=== PATIENT | male | born 1980 | race Caucasian/White ===

== ENCOUNTER 2018-10-24 05:50 | Emergency (ER) | payer SELFPAY ==
[2018-10-24 06:44] LABS: ABSOLUTE LYMPHOCYTES (AUTO) 1.6 10^3/uL (0.5-4.7); ABSOLUTE MONOCYTES (AUTO) 0.6 10^3/uL (0.1-1.4); ABSOLUTE NEUT (AUTO) 8.4 10^3/uL (1.7-8.2); BASOPHILS % (AUTO) 0.1 % (0-2); EOSINOPHILS % (AUTO) 0.4 % (0-6); LYMPHOCYTES % (AUTO) 14.8 % (13-45); MEAN CORPUSCULAR HEMOGLOBIN 30.7 pg (27.0-33.4); MEAN CORPUSCULAR HGB CONC 34.9 g/dL (32.0-36.0); MEAN CORPUSCULAR VOLUME 88 fl (80-97); MONOCYTES % (AUTO) 5.8 % (3-13); PLATELET COUNT 159 10^3/uL (150-450); RED BLOOD COUNT 5.22 10^6/uL (4.35-5.55); RED CELL DISTRIBUTION WIDTH 13.1 % (11.5-14.0); SEGMENTED NEUTROPHILS % (AUTO) 78.9 % (42-78); TOTAL CELLS COUNTED % (AUTO) 100 %; WHITE BLOOD COUNT 10.6 10^3/uL (4.0-10.5)
--- NOTE | 2018-10-24 06:49 | ER Document Report ---
ED General - General Chief Complaint: Abdominal Pain Stated Complaint: STOMACH PAIN Time Seen by Provider: 10/24/18 06:37 TRAVEL OUTSIDE OF THE [place] IN LAST 30 DAYS: No - HPI Notes: Patient is a 38-year-old male that presents to the emergency department for chief complaint of epigastric pain and chest pain. Patient reports sudden onset of pain in his epigastric region that radiates up into his chest substernally that began suddenly at 2 AM. He states the pain woke him from sleep. He did try taking Tums with no relief. Patient states similar symptoms in the past with acid reflux but states that has previously been relieved with Tums which did not work this time. He denies any recent alcohol consumption. He denies any heavy meals last night. He denies any difficulty breathing or shortness of breath. Patient states he tried to vomit a few times without success. He denies associated fever diarrhea Past Medical History: GERD Past Surgical History: 2 back surgeries Social History: Denies drugs alcohol or tobacco Family History: Reviewed and noncontributory for presenting illness Allergies: Reviewed, see documented allergy list. REVIEW OF SYSTEMS: CONSTITUTIONAL : No fever No chills No diaphoresis No recent illness EENT: No vision changes No congestion No sore throat CARDIOVASCULAR: No chest pain No palpitations RESPIRATORY: No shortness of breath No cough No difficulty breathing GASTROINTESTINAL: abdominal pain nausea No vomiting No diarrhea GENITOURINARY: No dysuria No hematuria No difficulty urinating MUSCULOSKELETAL: No back pain No leg pain No arm pain SKIN: No rashes No lesions LYMPHATIC: No swollen, enlarged glands. NEUROLOGICAL: No lightheadedness No headache No weakness No paresthesias PSYCHIATRIC: No anxiety No depression PHYSICAL EXAMINATION: Vital signs reviewed, nursing noted reviewed. GENERAL: Well-appearing, well-nourished and in no acute distress. HEAD: Atraumatic, normocephalic. EYES: Eyes appear normal, extraocular movements intact, sclera anicteric, conjunctiva are normal. ENT: nares patent, oropharynx clear without exudates. Moist mucous membranes. NECK: Normal range of motion, supple without lymphadenopathy LUNGS: Breath sounds clear to auscultation bilaterally and equal. No wheezes rales or rhonchi. HEART: Regular rate and rhythm without murmurs ABDOMEN: Soft, epigastric and left upper quadrant tenderness, negative Juarez sign, normoactive bowel sounds. No rebound, guarding, or rigidity. No masses appreciated. EXTREMITIES: Nontender, good range of motion, no pitting or edema. NEUROLOGICAL: No focal neurological deficits. Moves all extremities spontaneously Motor and sensory grossly intact on exam. PSYCH: Normal mood, normal affect. SKIN: Warm, Dry, normal turgor, no rashes or lesions noted on exposed skin - Related Data Allergies/Adverse Reactions: No Known Drug Allergies Allergy (Verified 10/24/18 06:10) Past Medical History - Social History Smoking Status: Unknown if Ever Smoked Family History: Reviewed & Not Pertinent Patient has suicidal ideation: No Patient has homicidal ideation: No Renal/ Medical History: Denies: Hx Peritoneal Dialysis GI Medical History: Reports: Hx Gastroesophageal Reflux Disease Physical Exam - Vital signs Vitals: Temp Pulse Resp BP Pulse Ox 98 F 55 L 22 H 189/105 H 99 10/24/18 06:11 10/24/18 06:11 10/24/18 06:11 10/24/18 06:11 10/24/18 06:11 Course - Re-evaluation Re-evalutation: 10/24/18 06:49 10/24/18 06:46 Vitals reviewed. Nursing notes reviewed. Patient is well-appearing and in no acute distress. He does have some epigastric discomfort and mild left upper quadrant tenderness concerning for possible pancreatitis. Lab work will be ordered for further evaluation. Patient given GI cocktail, and Pepcid for symptomatic management. His EKG shows no acute ischemic changes, he has no known risk factors for CAD and I am not suspicious of ACS at this time. 10/24/18 07:19 Patient's lab work shows normal lipase. He has no electrolyte derangement or renal insufficiency.. His abdominal exam is tender in the epigastric region but he does not have any peritoneal signs to suggest ruptured ulcer or other acute intra-abdominal process requiring CT scan. Patient will be referred to GI for EGD. He was extensively counseled on dietary changes. He will be started on omeprazole. He is stable at discharge. Laboratory 10/24/18 10/24/18 10/24/18 06:20 06:20 06:40 WBC 10.6 H RBC 5.22 Hgb 16.0 Hct 46.0 MCV 88 MCH 30.7 MCHC 34.9 RDW 13.1 Plt Count 159 Seg Neutrophils % 78.9 H Lymphocytes % 14.8 Monocytes % 5.8 Eosinophils % 0.4 Basophils % 0.1 Absolute Neutrophils 8.4 H Absolute Lymphocytes 1.6 Absolute Monocytes 0.6 Absolute Eosinophils 0.0 Absolute Basophils 0.0 Sodium 143.0 Potassium 4.1 Chloride 105 Carbon Dioxide 24 Anion Gap 14 BUN 21 H Creatinine 0.83 Est GFR ( Amer) > 60 Est GFR (Non-Af Amer) > 60 Glucose 152 H Calcium 10.4 H Total Bilirubin 0.7 Direct Bilirubin 0.2 Neonat Total Bilirubin Not Reportable Neonat Direct Bilirubin Not Reportable Neonat Indirect Bili Not Reportable AST 26 ALT 43 Alkaline Phosphatase 53 Total Protein 7.3 Albumin 4.7 Lipase 182.4 Urine Color YELLOW Urine Appearance CLOUDY Urine pH 8.0 Ur Specific [place] 1.024 Urine Protein NEGATIVE Urine Glucose (UA) NEGATIVE Urine Ketones NEGATIVE Urine Blood NEGATIVE Urine Nitrite NEGATIVE Urine Bilirubin NEGATIVE Urine Urobilinogen NEGATIVE Ur Leukocyte Esterase NEGATIVE Urine WBC (Auto) 2 Urine RBC (Auto) 0 Amorphous Sediment Auto TRACE Urine Mucus (Auto) RARE Urine Ascorbic Acid NEGATIVE - Vital Signs Vital signs: Temp Pulse Resp BP Pulse Ox 98 F 55 L 15 138/88 H 97 10/24/18 06:11 10/24/18 06:11 10/24/18 07:01 10/24/18 07:01 10/24/18 07:01 - Laboratory Result Diagrams: 10/24/18 06:20 10/24/18 06:20 Laboratory results interpreted by me: 10/24/18 10/24/18 06:20 06:20 WBC 10.6 H Seg Neutrophils % 78.9 H Absolute Neutrophils 8.4 H BUN 21 H Glucose 152 H Calcium 10.4 H - EKG Interpretation by Me Additional EKG results interpreted by me: 10/24/18 06:47 Interpreted by myself 0600: Sinus bradycardia, rate 58, normal axis, no ectopy, no STEMI Discharge - Discharge Clinical Impression: Epigastric abdominal pain Condition: Stable Disposition: HOME, SELF-CARE Instructions: Abdominal Pain ([facility]), Reflux Disease (GERD) ([facility]) Additional Instructions: Please return to the emergency department if you have any worsening, or concern of your symptoms. Please return to the emergency department if you develop chest pain, difficulty breathing, severe abdominal pain, or ongoing vomiting. Please follow-up with your primary care physician in 2-3 days and any other recommended physicians. If prescribed, take all medications as directed. If you have any questions or concerns do not hesitate to return the emergency department for evaluation. Follow-up with Dr. Slater, gastroenterology, for upper endoscopy (EGD) if symptoms persist Prescriptions: Omeprazole 40 mg PO DAILY #30 capsule. Referrals: [facility] [Provider Group] - Follow up as needed KENDAL SLATER MD [ACTIVE STAFF] - Follow up in 3-5 days
[2018-10-24 07:02] LABS: ALANINE AMINOTRANSFERASE 43 U/L (21-72); ALBUMIN 4.7 g/dL (3.5-5.0); ALKALINE PHOSPHATASE 53 U/L (38-126); ANION GAP 14 (5-19); ASPARTATE AMINO TRANSFERASE 26 U/L (17-59); BILIRUBIN,DIRECT 0.2 mg/dL (0.0-0.4); BILIRUBIN,TOTAL 0.7 mg/dL (0.2-1.3); BLOOD UREA NITROGEN 21 mg/dL (7-20); CALCIUM 10.4 mg/dL (8.4-10.2); CARBON DIOXIDE 24 mmol/L (22-30); CHLORIDE 105 mmol/L (98-107); GLUCOSE 152 mg/dL (75-110); LIPASE 182.4 U/L (23-300); POTASSIUM 4.1 mmol/L (3.6-5.0); TOTAL PROTEIN 7.3 g/dL (6.3-8.2)
[2018-10-24 07:06] LABS: AMORPHOUS SEDIMENT,URINE TRACE /HPF; APPEARANCE,URINE CLOUDY; BILIRUBIN,URINE NEGATIVE (NEGATIVE); COLOR,URINE YELLOW; GLUCOSE, URINE NEGATIVE (NEGATIVE); KETONES,URINE NEGATIVE (NEGATIVE); LEUKOCYTE ESTERASE,URINE NEGATIVE (NEGATIVE); NITRITE,URINE NEGATIVE (NEGATIVE); PROTEIN,URINE NEGATIVE (NEGATIVE); URINE SPECIFIC GRAVITY 1.024; UROBILINOGEN,URINE NEGATIVE mg/dL (<2.0)
[2018-10-24 07:07] VITALS: BP 138/88
[2018-10-24] MEDS ORDERED: FAMOTIDINE 20 MG TABLET PO ONE (07:19)
[2018-10-24] MEDS ORDERED: MAG HYDROX/AL HYDROX/SIMETH SUSP 30 ML UDCUP PO ONE (07:19)
[2018-10-24] MEDS ORDERED: METOCLOPRAMIDE HCL ORAL SOLN 10 MG/10 ML UDCUP PO ONE (07:19)
[2018-10-24] MEDS ORDERED: LIDOCAINE 2% VISCOUS SOLN 20 ML UDCUP PO ONE (07:19)
--- NOTE | 2018-10-24 23:13 | EKG REPORT ---
SEVERITY:- NORMAL ECG - SINUS RHYTHM : Confirmed by: Miriam Atkinson 24-Oct-2018 23:11:23
== END 2018-10-24 07:29 | disposition home or self-care (01) ==
LOC: ER 05:50
DX: R10.13 Epigastric pain (principal); R07.9 Chest pain, unspecified
CPT/HCPCS: 93005; 99284; 36415; 83690; 85025; 80053; 81001; 93010; J3490

== ENCOUNTER 2019-06-14 07:59 | Observation (INO) | payer BC ==
[2019-06-14 08:50] LABS: ABSOLUTE EOSINOPHILS # (AUTO) 0.1 10^3/uL (0.0-0.6); ABSOLUTE LYMPHOCYTES (AUTO) 1.2 10^3/uL (0.5-4.7); ABSOLUTE MONOCYTES (AUTO) 0.6 10^3/uL (0.1-1.4); ABSOLUTE NEUT (AUTO) 6.2 10^3/uL (1.7-8.2); BASOPHILS % (AUTO) 0.2 % (0-2); EOSINOPHILS % (AUTO) 1.6 % (0-6); HEMATOCRIT 45.9 % (37.9-51.0); HEMOGLOBIN 16.2 g/dL (13.5-17.0); MEAN CORPUSCULAR HEMOGLOBIN 31.6 pg (27.0-33.4); MEAN CORPUSCULAR HGB CONC 35.2 g/dL (32.0-36.0); MEAN CORPUSCULAR VOLUME 90 fl (80-97); MONOCYTES % (AUTO) 7.8 % (3-13); PLATELET COUNT 160 10^3/uL (150-450); RED BLOOD COUNT 5.13 10^6/uL (4.35-5.55); RED CELL DISTRIBUTION WIDTH 13.2 % (11.5-14.0); SEGMENTED NEUTROPHILS % (AUTO) 75.4 % (42-78); TOTAL CELLS COUNTED % (AUTO) 100 %; WHITE BLOOD COUNT 8.2 10^3/uL (4.0-10.5)
[2019-06-14 09:17] LABS: ALBUMIN 4.7 g/dL (3.5-5.0); ALKALINE PHOSPHATASE 140 U/L (38-126); ANION GAP 14 (5-19); ASPARTATE AMINO TRANSFERASE 251 U/L (17-59); BILIRUBIN,DIRECT 5.3 mg/dL (0.0-0.4); BILIRUBIN,TOTAL 6.8 mg/dL (0.2-1.3); BLOOD UREA NITROGEN 16 mg/dL (7-20); CALCIUM 9.9 mg/dL (8.4-10.2); CARBON DIOXIDE 26 mmol/L (22-30); CHLORIDE 102 mmol/L (98-107); CREATINE KINASE 122 U/L (55-170); GLUCOSE 119 mg/dL (75-110)
--- NOTE | 2019-06-14 09:23 | ER Document Report ---
ED General - General Chief Complaint: Epigastric Pain Stated Complaint: CHEST PAIN Time Seen by Provider: 06/14/19 09:18 Notes: Patient is a 38-year-old male who comes in complaining of epigastric pain and nausea. He has had the symptoms for about a week and states that they became better after he did not eat anything for about a day. He ate again yesterday and then developed pain again a few hours later. No history of gallstones or abdominal surgery in the past. No fever. No trouble breathing, cough or fever. No recent travel. No history of heart disease. Patient has tried taking omeprazole without any relief. Patient does not drink alcohol. He has a remote history of smoking, quit 15 years ago. TRAVEL OUTSIDE OF THE [place] IN LAST 30 DAYS: No - HPI Onset: Other Onset/Duration: Worse Quality of pain: Dull Severity: Moderate Pain Level: 3 Associated symptoms: Nausea Exacerbated by: Food Relieved by: Denies - Related Data Allergies/Adverse Reactions: No Known Drug Allergies Allergy (Verified 06/14/19 09:20) Past Medical History - Social History Smoking Status: Unknown if Ever Smoked Family History: Reviewed & Not Pertinent Patient has suicidal ideation: No Patient has homicidal ideation: No Renal/ Medical History: Denies: Hx Peritoneal Dialysis GI Medical History: Reports: Hx Gastroesophageal Reflux Disease Past Surgical History: Reports: Hx Orthopedic Surgery - Back surgery Review of Systems - Review of Systems -: Yes All other systems reviewed and negative Physical Exam - Vital signs Vitals: Temp Pulse Resp BP Pulse Ox 98.6 F 76 18 140/86 H 98 06/14/19 08:12 06/14/19 08:12 06/14/19 08:12 06/14/19 08:12 06/14/19 08:12 Interpretation: Normal - General General appearance: Alert In distress: None - Appears uncomfortable - HEENT Head: Normocephalic, Atraumatic Eyes: Normal Pupils: PERRL Mucous membranes: Dry - Respiratory Respiratory status: No respiratory distress Chest status: Nontender Breath sounds: Normal Chest palpation: Normal - Cardiovascular Rhythm: Regular Heart sounds: Normal auscultation Murmur: No - Abdominal Inspection: Normal Distension: No distension Bowel sounds: Normal Tenderness: Tender Organomegaly: No organomegaly - Back Back: Normal, Nontender - Extremities General upper extremity: Normal inspection, Nontender, Normal color, Normal ROM, Normal temperature General lower extremity: Normal inspection, Nontender, Normal color, Normal ROM, Normal temperature, Normal weight bearing. No: Moriah's sign - Neurological Neuro grossly intact: Yes Cognition: Normal Orientation: AAOx4 Al Coma Scale Eye Opening: Spontaneous [place] Coma Scale Verbal: Oriented [place] Coma Scale Motor: Obeys Commands [place] Coma Scale Total: 15 Speech: Normal Motor strength normal: LUE, RUE, LLE, RLE Sensory: Normal - Psychological Associated symptoms: Normal affect, Normal mood - Skin Skin Temperature: Warm Skin Moisture: Dry Skin Color: Normal Course - Re-evaluation Re-evalutation: 06/14/19 12:14 Patient is a 38-year-old male who comes in with epigastric pain and nausea. Patient has an elevated bilirubin and LFTs concerning for choledocholithiasis. Patient has had the symptoms for about a week. Ultrasound showing some pericholecystic fluid and thickened gallbladder wall. Surgery on-call contacted. D/w Dr. Johnson. Recommends possible MRCP for further evaluation. No gastroenterology central station operator at this time per pipeline dispatch operator. 06/14/19 12:17 Called and spoke with MRI. MRI machine is currently down. 06/14/19 12:20 Call placed to [facility]. 06/14/19 12:26 Received callback from [facility]. No ERCP available. 06/14/19 12:28 Call placed to [facility]. No ERCP available. 06/14/19 12:29 Call placed to [facility]. AT capacity, not excepting medical patients. 06/14/19 12:31 Call placed to [facility]. Transfer center has taken information and will call me back. 06/14/19 13:[address] Chowdary from GI at [facility]. Will accept in transfer to [facility]. 06/14/19 13:10 Called back to surgeon central station operator to see patient due to bed delay at other facility. He will be down to see the patient. 06/14/19 13:31 Dr. Johnson in ED. Has seen patient. Recommends trying to call Dr. Lees to see if he is available for ERCP. Recommends medical admission. 06/14/19 14:[address] Lees. He is available and will be able to do ERCP on this patient at this facility. Requests admisson to Medical service. 06/14/19 14:07 Spoke with Aleksandra Horan. States this is a surgical admission. Refuses admission. Also refuses to talk to surgeon. 06/14/19 14:10 Dr. Johnson in OR. 06/14/19 14:[address] Pillai who will discuss with the surgeon on-call. 06/14/19 14:17 Surgery will admit. Please put bed in. Recommend Zosyn. Request consults to GI, whom I have already spoken to. As per protocol designed by Drs. Pillai and Jethro, medicine is to consult. 06/14/19 14:28 Spoke with Aleksandra Horan again. Surgery will admit and requesting medicine consult. She will discuss with Dr. Jean-Baptiste but is aware that medicine will be consulted. - Vital Signs Vital signs: Temp Pulse Resp BP Pulse Ox 98.8 F 76 18 140/86 H 98 06/14/19 14:25 06/14/19 08:12 06/14/19 08:42 06/14/19 08:12 06/14/19 08:42 - Laboratory Result Diagrams: 06/14/19 08:38 06/14/19 08:38 Laboratory results interpreted by me: 06/14/19 06/14/19 08:32 08:38 Glucose 119 H Total Bilirubin 6.8 H Direct Bilirubin 5.3 H AST 251 H Alkaline Phosphatase 140 H Urine Bilirubin MODERATE H Urine Urobilinogen 4.0 H - Diagnostic Test Radiology reviewed: Reports reviewed - EKG Interpretation by Me EKG shows normal: Sinus rhythm Rate: Normal Rhythm: NSR - 68 When compared to previous EKG there are: No significant change Critical Care Note - Critical Care Note Total time excluding time spent on procedures (mins): 100 - Evaluation and management of patient with abdominal pain and nausea, consultation with specialist, attempted transfer, coordination of admission, multiple re- evaluations and counseling of patient Discharge - Discharge Clinical Impression: Choledocholithiasis with acute cholecystitis Condition: Stable Disposition: ADMITTED INPATIENT Admitting Provider: Siddharthaist Jewel Johnson Unit Admitted: Surgical Floor
[2019-06-14 09:30] LABS: CREATINE KINASE MB 1.62 ng/mL (<4.55)
[2019-06-14 09:36] LABS: TROPONIN I < 0.012 ng/mL
[2019-06-14] MEDS ORDERED: SUCCINYLCHOLINE CHLORIDE INJ 200 MG/10 ML VIAL ONE (09:51)
[2019-06-14] MEDS ORDERED: NORMAL SALINE 1000 ML 1,000 ML IV ONE (10:13)
[2019-06-14] MEDS ORDERED: ONDANSETRON HCL INJ/PF 4 MG/2 ML SDV IV ONE (10:50)
[2019-06-14] MEDS ORDERED: FENTANYL CITRATE INJ/PF 100 MCG/2 ML AMPUL IV ONE (10:50)
--- NOTE | 2019-06-14 12:02 | RADIOLOGY REPORT (SQ) ---
EXAM DESCRIPTION: U/S ABDOMEN LIMITED W/O DOP COMPLETED DATE/TIME: 06/14/2019 10:42 am REASON FOR STUDY: epigastric pain, NV COMPARISON: None. TECHNIQUE: Dynamic and static grayscale images acquired of the abdomen and recorded on PACS. Additio nal selected color Doppler and spectral images recorded. LIMITATIONS: None. FINDINGS: PANCREAS: Unable to visualize the pancreas. LIVER: The echogenicity of hepatic parenchyma is increased compared to the renal cortex. LIVER VASCULATURE: Normal directional flow within the portal veins. GALLBLADDER: There are calculi within the gallbladder lumen. In addition to the calculi, there are p unctate echogenic foci within the nondependent portion of the gallbladder wall with comet tail artifa ct. The gallbladder wall measures 2.2 mm in thickness. There is a trace amount of pericholecystic f luid. ULTRASOUND-DETECTED JUAREZ'S SIGN: Positive. INTRAHEPATIC DUCTS AND COMMON DUCT: The common bile duct measures 5.5 mm in diameter. AORTA: No aneurysm. RIGHT KIDNEY: The right kidney measures 12.9 cm in length. There is no hydronephrosis. PERITONEAL AND RIGHT PLEURAL SPACE: No ascites or effusions. OTHER: No other findings. IMPRESSION: 1. Cholelithiasis, positive Juarez's sign and probable trace amount of pericholecystic fluid. These findings are concerning for an acute diverticulitis. 2. Punctate echogenic foci within the nondependent portion of the gallbladder wall with comet tail a rtifact. These findings are suggestive of adenomyomatosis. 3. Increased echogenicity of the hepatic parenchyma relative to the renal cortex. The finding is ty pical in the setting of diffuse hepatocellular disease including hepatic steatosis. TECHNICAL DOCUMENTATION: JOB ID: [id number] [employer]- All Rights Reserved Reading location - IP/workstation name: [email or web address]
[2019-06-14 14:22] LABS: APPEARANCE,URINE TURBID; BILIRUBIN,URINE MODERATE (NEGATIVE); GLUCOSE, URINE NEGATIVE (NEGATIVE); KETONES,URINE NEGATIVE (NEGATIVE); LEUKOCYTE ESTERASE,URINE NEGATIVE (NEGATIVE); NITRITE,URINE NEGATIVE (NEGATIVE); PROTEIN,URINE NEGATIVE (NEGATIVE); URINE SPECIFIC GRAVITY 1.019
[2019-06-14 14:27] LABS: COLOR,URINE DARK YELLOW
[2019-06-14] MEDS ORDERED: PIPERACILLIN/TAZOBACTAM 3.375 GM VIAL IV ONE (14:32)
[2019-06-14] MEDS ORDERED: RINGERS SOLUTION,LACTATED 1,000 ML IV ONE (15:25)
--- NOTE | 2019-06-14 15:29 | RADIOLOGY REPORT (SQ) ---
EXAM DESCRIPTION: CHEST SINGLE VIEW COMPLETED DATE/TIME: 06/14/2019 3:17 pm REASON FOR STUDY: preop COMPARISON: None. EXAM PARAMETERS: NUMBER OF VIEWS: One view. TECHNIQUE: An AP view of the chest was obtained. RADIATION DOSE: NA LIMITATIONS: None. FINDINGS: LUNGS AND PLEURA: No consolidation, pleural effusion or pneumothorax. MEDIASTINUM AND HILAR STRUCTURES: No mediastinal or hilar contour abnormality. HEART AND VASCULAR STRUCTURES: The cardiac silhouette and pulmonary vasculature are within normal whitaker its. BONES: No acute findings. HARDWARE: None in the chest. OTHER: No other finding. IMPRESSION: No acute cardiopulmonary process. TECHNICAL DOCUMENTATION: JOB ID: [id number] [employer]- All Rights Reserved Reading location - IP/workstation name: [email or web address]
[2019-06-14] MEDS ORDERED: DEXTROSE 50%-WATER 25 GM/50 ML DISP.SYRIN IV PRN ×2 (16:23)
[2019-06-14] MEDS ORDERED: GLUCAGON,HUMAN RECOMB 1 MG INJ SUBCUT PRN (16:23)
[2019-06-14] MEDS ORDERED: DEXTROSE 40% GEL 15 GM TUBE PO PRN ×2 (16:23)
[2019-06-14] MEDS ORDERED: ONDANSETRON HCL INJ/PF 4 MG/2 ML SDV IV PRN (16:23)
--- NOTE | 2019-06-14 16:35 | PDOC H&P ---
History of Present Illness Admission Date/PCP: 06/14/19 14:42 Patient is a 38-year-old male who comes in complaining of epigastric pain and nausea. He has had the symptoms for about a week and states that they became better after he did not eat anything for about a day. He ate again yesterday and then developed pain again a few hours later. No history of gallstones or abdominal surgery in the past. No fever. No trouble breathing, cough or fever. No recent travel. No history of heart disease. Patient has tried taking omeprazole without any relief. Patient does not drink alcohol. He has a remote history of smoking, quit 15 years ago. History of Present Illness: KYLEIGH CAN is a 38 year old male Past Medical History GI Medical History: Reports: Gastroesophageal Reflux Disease Past Surgical History Past Surgical History: Reports: Orthopedic Surgery - Back surgery Social History Smoking Status: Unknown if Ever Smoked Family History Family History: Reviewed & Not Pertinent Parental Family History Reviewed: No Children Family History Reviewed: NA Sibling(s) Family History Reviewed.: NA Medication/Allergy Home Medications: Omeprazole 40 mg PO BID 06/14/19 Allergies/Adverse Reactions: No Known Drug Allergies Allergy (Verified 06/14/19 09:20) Review of Systems Constitutional: PRESENT: anorexia, fatigue Eyes: ABSENT: as per HPI, visual disturbances, other Ears: ABSENT: as per HPI, hearing changes, other Nose, Mouth, and Throat: ABSENT: as per HPI, headache(s), mouth pain, sore throat, vertigo, other Breasts: ABSENT: as per HPI, other Cardiovascular: ABSENT: as per HPI, chest pain, dyspnea on exertion, edema, orthropnea, palpitations, other Respiratory: ABSENT: as per HPI, cough, dyspnea, hemoptysis, sputum, other Gastrointestinal: PRESENT: heartburn, nausea Genitourinary: ABSENT: as per HPI, difficulty urinating, dysuria, hematuria, nocturia, other Musculoskeletal: ABSENT: as per HPI, back pain, deformity, joint swelling, muscle weakness, other Integumentary: ABSENT: as per HPI, diaphoresis, erythema, lesions, pruritus, rash, wounds, other Neurological: ABSENT: as per HPI, abnormal gait, abnormal movements, abnormal speech, confusion, convulsions, dizziness, focal weakness, frequent falls, lack of coordination, memory loss, numbness, paresthesias, restless legs, syncope, tingling, tremor(s), vertigo, weakness, other Psychiatric: ABSENT: as per HPI, anxiety, depression, hallucinations, homidical ideation, suicidal ideation, other Endocrine: ABSENT: as per HPI, cold intolerance, flushing, heat intolerance, menstrual abnormalities, polydipsia, polyphagia, polyuria, other Hematologic/Lymphatic: ABSENT: as per HPI, easy bleeding, easy bruising, lymphadenopathy, other Allergic/Immunologic: ABSENT: as per HPI, seasonal rhinorrhea, other Physical Exam Vital Signs: Temp Pulse Resp BP Pulse Ox 98.8 F 76 18 140/86 H 98 06/14/19 14:25 06/14/19 08:12 06/14/19 08:42 06/14/19 08:12 06/14/19 08:42 Intake & Output 06/13/19 06/14/19 06/15/19 06:59 06:59 06:59 Intake Total 1000 Balance 1000 Weight 116.4 kg General appearance: PRESENT: no acute distress Head exam: PRESENT: atraumatic Eye exam: PRESENT: scleral icterus Ear exam: PRESENT: normal external ear exam Mouth exam: PRESENT: moist Neck exam: PRESENT: full ROM Respiratory exam: PRESENT: clear to auscultation conrad Cardiovascular exam: PRESENT: RRR Pulses: PRESENT: normal radial pulses GI/Abdominal exam: PRESENT: soft Rectal exam: PRESENT: deferred Extremities exam: PRESENT: full ROM Musculoskeletal exam: PRESENT: full ROM Neurological exam: PRESENT: alert, awake, oriented to person, oriented to place, oriented to time Psychiatric exam: PRESENT: appropriate affect Skin exam: PRESENT: dry Results Laboratory Results: 06/14/19 08:38 06/14/19 08:38 06/14/19 06/14/19 06/14/19 08:32 08:38 08:38 WBC 8.2 RBC 5.13 Hgb 16.2 Hct 45.9 MCV 90 MCH 31.6 MCHC 35.2 RDW 13.2 Plt Count 160 Seg Neutrophils % 75.4 Sodium 141.7 Potassium 4.0 Chloride 102 Carbon Dioxide 26 Anion Gap 14 BUN 16 Creatinine 0.97 Est GFR ( Amer) > 60 Glucose 119 H Calcium 9.9 Total Bilirubin 6.8 H AST 251 H Alkaline Phosphatase 140 H Total Protein 8.0 Albumin 4.7 Lipase Urine Color DARK YELLOW Urine Appearance TURBID Urine pH 5.0 Ur Specific [place] 1.019 Urine Protein NEGATIVE Urine Glucose (UA) NEGATIVE Urine Ketones NEGATIVE Urine Blood NEGATIVE Urine Nitrite NEGATIVE Ur Leukocyte Esterase NEGATIVE Urine WBC (Auto) 2 Urine RBC (Auto) 0 06/14/19 08:38 WBC RBC Hgb Hct MCV MCH MCHC RDW Plt Count Seg Neutrophils % Sodium Potassium Chloride Carbon Dioxide Anion Gap BUN Creatinine Est GFR ( Amer) Glucose Calcium Total Bilirubin AST Alkaline Phosphatase Total Protein Albumin Lipase 242.7 Urine Color Urine Appearance Urine pH Ur Specific [place] Urine Protein Urine Glucose (UA) Urine Ketones Urine Blood Urine Nitrite Ur Leukocyte Esterase Urine WBC (Auto) Urine RBC (Auto) 06/14/19 06/14/19 06/14/19 08:38 08:38 11:25 Creatine Kinase 122 CK-MB (CK-2) 1.62 Troponin I < 0.012 < 0.012 Impressions: Abdomen Ultrasound 06/14/19 10:02 IMPRESSION: 1. Cholelithiasis, positive Juarez's sign and probable trace amount of pericholecystic fluid. These findings are concerning for an acute diverticulitis. 2. Punctate echogenic foci within the nondependent portion of the gallbladder wall with comet tail artifact. These findings are suggestive of adenomyomatosis. 3. Increased echogenicity of the hepatic parenchyma relative to the renal cortex. The finding is typical in the setting of diffuse hepatocellular disease including hepatic steatosis. Chest X-Ray 06/14/19 14:31 IMPRESSION: No acute cardiopulmonary process. Assessment & Plan - Plan Summary Plan Summary: With markedly elevated liver function studies ultrasound consistent with gallstones and mildly dilated dilated common bile duct Impression is choledocholithiasis Plan admission IV hydration Dr. Velarde was consulted for ERCP which will be performed this evening. We will plan on laparoscopic cholecystectomy after the ERCP is completed.
[2019-06-14] MEDS ORDERED: FENTANYL CITRATE INJ/PF 100 MCG/2 ML AMPUL ONE (17:23)
[2019-06-14] MEDS ORDERED: MIDAZOLAM 2 MG/2 ML INJ ONE (17:23)
[2019-06-14] MEDS ORDERED: ONDANSETRON HCL INJ/PF 4 MG/2 ML SDV ONE (17:23)
[2019-06-14] MEDS ORDERED: PROPOFOL INJ 200 MG/20 ML VIAL IV ONE (17:24)
--- NOTE | 2019-06-14 17:28 | EKG REPORT ---
SEVERITY:- NORMAL ECG - SINUS RHYTHM : Confirmed by: Miriam Atkinson 14-Jun-2019 17:28:07
--- NOTE | 2019-06-14 17:29 | PDOC CONSULTATION ---
Consultation Consult Date: 06/14/19 Provider Consulted: TAYLOR MORAN History of Present Illness Admission Date/PCP: 06/14/19 14:42 Patient complains of: abdominal pain History of Present Illness: Per H&P by Dr. Johnson: Patient is a 38-year-old male who comes in complaining of epigastric pain and nausea. He has had the symptoms for about a week and states that they became better after he did not eat anything for about a day. He ate again yesterday and then developed pain again a few hours later. No history of gallstones or abdominal surgery in the past. No fever. No trouble breathing, cough or fever. No recent travel. No history of heart disease. Patient has tried taking omeprazole without any relief. Patient does not drink alcohol. He has a remote history of smoking, quit 15 years ago. The patient was seen in the ED with his significant other present. He was found resting in bed, comfortably, on room air. He reports approximately 1 year of intermittent epigastric abdominal discomfort with nausea and dyspepsia. He reports that he is most current episode began several days ago, is more severe than previous episodes and lasting longer which is what prompted him to seek evaluation in the emergency department. The patient denies significant past medical history other than 2 prior back surgeries. 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 He denies any shortness of breath, chest pain, or palpitations during physical activity. He does not utilize tobacco or e-cigarette products and does not drink alcohol on a regular basis; he denies recreational drug use. Hospitalist service was asked to provide a medicine evaluation prior to surgery. Past Medical History Cardiac Medical History: Reports: None Pulmonary Medical History: Reports: None EENT Medical History: Reports: None Neurological Medical History: Reports: None Endocrine Medical History: Reports: None Renal/ Medical History: Reports: None Malignancy Medical History: Reports: None GI Medical History: Reports: Gastroesophageal Reflux Disease Musculoskeltal Medical History: Reports: None Skin Medical History: Reports: None Psychiatric Medical History: Reports: None Traumatic Medical History: Reports: None Hematology: Reports: None Infectious Medical History: Reports: None Past Surgical History Past Surgical History: Reports: Orthopedic Surgery - Back surgery Social History Information Source: Patient Lives with: Spouse/Significant other Smoking Status: Former Smoker Last Time Smoked: 2003 Frequency of Alcohol Use: Rare Hx Recreational Drug Use: No Hx Prescription Drug Abuse: No - Advance Directive Resuscitation Status: Full Code Family History Family History: Reviewed & Not Pertinent Parental Family History Reviewed: Yes Children Family History Reviewed: No Sibling(s) Family History Reviewed.: No Medication/Allergy Home Medications: Omeprazole 40 mg PO BID 06/14/19 Allergies/Adverse Reactions: No Known Drug Allergies Allergy (Verified 06/14/19 09:20) Review of Systems Constitutional: ABSENT: chills, fever(s), headache(s), weight gain, weight loss Eyes: ABSENT: visual disturbances Ears: ABSENT: hearing changes Cardiovascular: ABSENT: chest pain, dyspnea on exertion, edema, orthropnea, palpitations Respiratory: ABSENT: cough, hemoptysis Gastrointestinal: PRESENT: as per HPI Genitourinary: ABSENT: dysuria, hematuria Musculoskeletal: ABSENT: joint swelling Integumentary: ABSENT: rash, wounds Neurological: ABSENT: abnormal gait, abnormal speech, confusion, dizziness, focal weakness, syncope Psychiatric: ABSENT: anxiety, depression, homidical ideation, suicidal ideation Endocrine: ABSENT: cold intolerance, heat intolerance, polydipsia, polyuria Hematologic/Lymphatic: ABSENT: easy bleeding, easy bruising Physical Exam Vital Signs: Temp Pulse Resp BP Pulse Ox 98.1 F 76 21 H 140/86 H 97 06/14/19 17:00 06/14/19 08:12 06/14/19 17:00 06/14/19 08:12 06/14/19 17:00 Intake & Output 06/13/19 06/14/19 06/15/19 06:59 06:59 06:59 Intake Total 1000 Balance 1000 Weight 116.4 kg General appearance: PRESENT: no acute distress, cooperative, well-developed, well-nourished Head exam: PRESENT: atraumatic, normocephalic Eye exam: PRESENT: conjunctiva pink, EOMI, PERRLA. ABSENT: scleral icterus Ear exam: PRESENT: normal external ear exam Mouth exam: PRESENT: moist, tongue midline Neck exam: ABSENT: carotid bruit, JVD, lymphadenopathy, thyromegaly Respiratory exam: PRESENT: clear to auscultation conrad. ABSENT: rales, rhonchi, wheezes Cardiovascular exam: PRESENT: RRR. ABSENT: diastolic murmur, rubs, systolic murmur Pulses: PRESENT: normal dorsalis pedis pul Vascular exam: PRESENT: normal capillary refill GI/Abdominal exam: PRESENT: normal bowel sounds, soft, tenderness. ABSENT: distended, guarding, mass, organolmegaly, rebound Rectal exam: PRESENT: deferred Extremities exam: PRESENT: full ROM. ABSENT: calf tenderness, clubbing, pedal edema Musculoskeletal exam: PRESENT: ambulatory Neurological exam: PRESENT: alert, awake, oriented to person, oriented to place, oriented to time, oriented to situation, CN II-XII grossly intact. ABSENT: motor sensory deficit Psychiatric exam: PRESENT: appropriate affect, normal mood. ABSENT: homicidal ideation, suicidal ideation Skin exam: PRESENT: dry, intact, warm. ABSENT: cyanosis, rash Results Laboratory Results: 06/14/19 08:38 06/14/19 08:38 06/14/19 06/14/19 06/14/19 08:32 08:38 08:38 WBC 8.2 RBC 5.13 Hgb 16.2 Hct 45.9 MCV 90 MCH 31.6 MCHC 35.2 RDW 13.2 Plt Count 160 Seg Neutrophils % 75.4 Sodium 141.7 Potassium 4.0 Chloride 102 Carbon Dioxide 26 Anion Gap 14 BUN 16 Creatinine 0.97 Est GFR ( Amer) > 60 Glucose 119 H Calcium 9.9 Total Bilirubin 6.8 H AST 251 H Alkaline Phosphatase 140 H Total Protein 8.0 Albumin 4.7 Lipase Urine Color DARK YELLOW Urine Appearance TURBID Urine pH 5.0 Ur Specific [place] 1.019 Urine Protein NEGATIVE Urine Glucose (UA) NEGATIVE Urine Ketones NEGATIVE Urine Blood NEGATIVE Urine Nitrite NEGATIVE Ur Leukocyte Esterase NEGATIVE Urine WBC (Auto) 2 Urine RBC (Auto) 0 06/14/19 08:38 WBC RBC Hgb Hct MCV MCH MCHC RDW Plt Count Seg Neutrophils % Sodium Potassium Chloride Carbon Dioxide Anion Gap BUN Creatinine Est GFR ( Amer) Glucose Calcium Total Bilirubin AST Alkaline Phosphatase Total Protein Albumin Lipase 242.7 Urine Color Urine Appearance Urine pH Ur Specific [place] Urine Protein Urine Glucose (UA) Urine Ketones Urine Blood Urine Nitrite Ur Leukocyte Esterase Urine WBC (Auto) Urine RBC (Auto) 06/14/19 06/14/19 06/14/19 08:38 08:38 11:25 Creatine Kinase 122 CK-MB (CK-2) 1.62 Troponin I < 0.012 < 0.012 Impressions: Abdomen Ultrasound 06/14/19 10:02 IMPRESSION: 1. Cholelithiasis, positive Juarez's sign and probable trace amount of pericholecystic fluid. These findings are concerning for an acute diverticulitis. 2. Punctate echogenic foci within the nondependent portion of the gallbladder wall with comet tail artifact. These findings are suggestive of adenomyomatosis. 3. Increased echogenicity of the hepatic parenchyma relative to the renal cortex. The finding is typical in the setting of diffuse hepatocellular disease including hepatic steatosis. Chest X-Ray 06/14/19 14:31 IMPRESSION: No acute cardiopulmonary process. Assessment and Plan - Diagnosis (1) Choledocholithiasis with acute cholecystitis Is this a current diagnosis for this admission?: Yes Plan: Per primary team. Both GI and Surgery onboard. CXR is benign. EKG shows normal sinus rhythm. Patient is hemodynamically stable. Granados perioperative risk is 0.0% KRYSTAL Patient has no immediately reversible risk factors. Cleared for surgery from the hospitalist perspective. Will sign off; please re-consult if the hospitalist service can be of additional assistance. (2) GERD (gastroesophageal reflux disease) Qualifiers: Esophagitis presence: without esophagitis Qualified Code(s): K21.9 - Gastro-esophageal reflux disease without esophagitis Is this a current diagnosis for this admission?: Yes Plan: Recommend PPI (3) Obesity (BMI 30.0-34.9) Is this a current diagnosis for this admission?: Yes Plan: Dietary and lifestyle modification encouraged. Recommend aggressive pulmonary toilet and early ambulation postoperatively. - Time Time Spent with patient: 25-34 minutes Medications reviewed and adjusted accordingly: Yes
[2019-06-14] MEDS ORDERED: DIPHENHYDRAMINE HCL 50 MG/ML VIAL IV PRN (18:09)
[2019-06-14] MEDS ORDERED: PROMETHAZINE HCL INJ 25 MG/1 ML VIAL IV PRN (18:09)
[2019-06-14] MEDS ORDERED: FENTANYL CITRATE INJ/PF 100 MCG/2 ML AMPUL IV PRN ×3 (18:09)
--- NOTE | 2019-06-14 18:31 | PDOC CONSULTATION ---
Consultation Consult Date: 06/14/19 Provider Consulted: ELOY MYERS History of Present Illness Admission Date/PCP: 06/14/19 14:42 History of Present Illness: KYLEIGH CAN is a 38 year old male Who was admitted to the emergency room today with recurrent abdominal pain. He did come to the emergency room back in October with a mild abdominal pain but has been doing okay until the last 5 days. He had significant pain for about 24 hours starting 5 days ago and then the pain came back 1 day later and has been constant since. There is some nausea and he vomited once. On admission his bilirubin was 6.8 with a direct of 5.3 and his ultrasound did show gallstones with a CBD of 5 mm. There was some pericholecystic fluid and Juarez's sign was positive. He also had a fatty liver his urine became very dark a few days ago. He has no previous history of liver disease Past Medical History Cardiac Medical History: Reports: None Pulmonary Medical History: Reports: None EENT Medical History: Reports: None Neurological Medical History: Reports: None Endocrine Medical History: Reports: None Renal/ Medical History: Reports: None Malignancy Medical History: Reports: None GI Medical History: Reports: Gastroesophageal Reflux Disease Musculoskeltal Medical History: Reports: None Skin Medical History: Reports: None Psychiatric Medical History: Reports: None Traumatic Medical History: Reports: None Hematology: Reports: None Infectious Medical History: Reports: None Past Surgical History Past Surgical History: Reports: Orthopedic Surgery - Back surgery Social History Lives with: Spouse/Significant other Smoking Status: Former Smoker Last Time Smoked: 2003 Frequency of Alcohol Use: Rare Hx Recreational Drug Use: No Hx Prescription Drug Abuse: No - Advance Directive Resuscitation Status: Full Code Family History Family History: Reviewed & Not Pertinent Parental Family History Reviewed: No Children Family History Reviewed: NA Sibling(s) Family History Reviewed.: NA Medication/Allergy Home Medications: Omeprazole 40 mg PO BID 06/14/19 Allergies/Adverse Reactions: No Known Drug Allergies Allergy (Verified 06/14/19 09:20) Review of Systems All systems: reviewed and no additional remarkable complaints except as stated Physical Exam Vital Signs: Temp Pulse Resp BP Pulse Ox 98.1 F 76 21 H 140/86 H 97 06/14/19 17:00 06/14/19 08:12 06/14/19 17:00 06/14/19 08:12 06/14/19 17:00 Intake & Output 06/13/19 06/14/19 06/15/19 06:59 06:59 06:59 Intake Total 1000 Balance 1000 Weight 116.4 kg Exam: General: Patient is alert and looks well. HEENT: There is no pallor or jaundice. PERRLA. Oropharynx normal Respiratory: No chest deformity. No respiratory distress. Chest wall palpitation was unremarkable. Breath sounds were normal Cardiovascular: Heart sounds 1 and 2 normal with no murmurs. Abdominal: Not distended. Soft and nontender. Liver and spleen not palpable. No ascites demonstrated. Bowel sounds active. Rectal examination was deferred. Extremities: No edema Neurological: Alert and oriented x4. Grossly nonfocal. Normal speech Skin: No significant rash Psychological: Normal affect Results Laboratory Results: 06/14/19 08:38 06/14/19 08:38 06/14/19 06/14/19 06/14/19 08:32 08:38 08:38 WBC 8.2 RBC 5.13 Hgb 16.2 Hct 45.9 MCV 90 MCH 31.6 MCHC 35.2 RDW 13.2 Plt Count 160 Seg Neutrophils % 75.4 Sodium 141.7 Potassium 4.0 Chloride 102 Carbon Dioxide 26 Anion Gap 14 BUN 16 Creatinine 0.97 Est GFR ( Amer) > 60 Glucose 119 H Calcium 9.9 Total Bilirubin 6.8 H AST 251 H Alkaline Phosphatase 140 H Total Protein 8.0 Albumin 4.7 Lipase Urine Color DARK YELLOW Urine Appearance TURBID Urine pH 5.0 Ur Specific [place] 1.019 Urine Protein NEGATIVE Urine Glucose (UA) NEGATIVE Urine Ketones NEGATIVE Urine Blood NEGATIVE Urine Nitrite NEGATIVE Ur Leukocyte Esterase NEGATIVE Urine WBC (Auto) 2 Urine RBC (Auto) 0 06/14/19 08:38 WBC RBC Hgb Hct MCV MCH MCHC RDW Plt Count Seg Neutrophils % Sodium Potassium Chloride Carbon Dioxide Anion Gap BUN Creatinine Est GFR ( Amer) Glucose Calcium Total Bilirubin AST Alkaline Phosphatase Total Protein Albumin Lipase 242.7 Urine Color Urine Appearance Urine pH Ur Specific [place] Urine Protein Urine Glucose (UA) Urine Ketones Urine Blood Urine Nitrite Ur Leukocyte Esterase Urine WBC (Auto) Urine RBC (Auto) 06/14/19 06/14/19 06/14/19 08:38 08:38 11:25 Creatine Kinase 122 CK-MB (CK-2) 1.62 Troponin I < 0.012 < 0.012 Impressions: Abdomen Ultrasound 06/14/19 10:02 IMPRESSION: 1. Cholelithiasis, positive Juarez's sign and probable trace amount of pericholecystic fluid. These findings are concerning for an acute diverticulitis. 2. Punctate echogenic foci within the nondependent portion of the gallbladder wall with comet tail artifact. These findings are suggestive of adenomyomatosis. 3. Increased echogenicity of the hepatic parenchyma relative to the renal cortex. The finding is typical in the setting of diffuse hepatocellular disease including hepatic steatosis. Chest X-Ray 06/14/19 14:31 IMPRESSION: No acute cardiopulmonary process. Assessment & Plan - Diagnosis (1) Choledocholithiasis with acute cholecystitis Is this a current diagnosis for this admission?: Yes Plan: His symptoms, ultrasound and laboratory findings is suggestive of choledocholithiasis. The need for an ERCP was explained to the patient including the risks and benefits and he was in agreement. He will undergo cholecystectomy soon thereafter (2) Abdominal pain Qualifiers: Abdominal location: upper abdomen, unspecified Qualified Code(s): R10.10 - Upper abdominal pain, unspecified Is this a current diagnosis for this admission?: Yes (3) Jaundice Is this a current diagnosis for this admission?: Yes (4) Gallstones Is this a current diagnosis for this admission?: Yes (5) Fatty liver Is this a current diagnosis for this admission?: Yes
--- NOTE | 2019-06-14 18:33 | Operative Report ---
Operative Report DATE OF SURGERY: 06/14/19 Operative Report: Pre-op diagnosis: Gallstones and jaundice Post-op diagnosis: Multiple common bile duct stones Surgery: ERCP with sphincterotomy and balloon stone extraction Medications: As per anesthesia Tissue removed: None Procedure: After informed consent obtained from patient, the throat was sprayed with Hurricane and conscious sedation was achieved. The ERCP endoscope was then inserted into the esophagus blindly and advanced into the stomach. The duodenum was entered and the ampulla was identified. Using the triple-lumen sphincterotomy catheter the common bile duct was freely cannulated. A cholangiogram was obtained which showed possible filling defect in the distal common bile duct. The common bile duct and intrahepatic ducts did not appear dilated. A good sized sphincterotomy was then performed using the endocut mode. The catheter was removed over the guidewire before a 9-12 mm balloon catheter was inserted. The balloon was inflated to 12 mm in the proximal common bile duct and pulled down the duct. 2 small stones were extracted. The duct was swept one more time. A balloon occlusion cholangiogram was normal. The pancreatic duct was intentionally not cannulated. Patient tolerated procedure well. Findings Common bile duct: Two stones removed Intrahepatic ducts: Normal Pancreatic duct: Not cannulated Plan: Follow-up LFTs and proceed with cholecystectomy OPERATION: .
--- NOTE | 2019-06-14 19:00 | RADIOLOGY REPORT (SQ) ---
EXAM DESCRIPTION: ENDO CATH/BILIARY DUCT COMPLETED DATE/TIME: 06/14/2019 6:43 pm REASON FOR STUDY: CHOLELIATHASIS COMPARISON: None. FLUOROSCOPY TIME: 3.1 minutes. 6 images saved to PACS. TECHNIQUE: Intra-operative images acquired during surgical procedure to evaluate progress. NUMBER OF IMAGES: 6 images. LIMITATIONS: None. FINDINGS: Images acquired during ERCP. IMPRESSION: IMAGE(S) OBTAINED DURING PROCEDURE. COMMENT: Quality ID [id number]: Final reports for procedures using fluoroscopy that document radiation exp osure indices, or exposure time and number of fluorographic images (if radiation exposure indices are not available) Please consult full operative report of the attending physician for description of the procedure. TECHNICAL DOCUMENTATION: JOB ID: [id number] [employer]- All Rights Reserved Reading location - IP/workstation name: [email or web address]
[2019-06-14] MEDS: PANTOPRAZOLE SODIUM 40 MG TABLET.DR PO SCH (22:01)
[2019-06-14] MEDS: AMPICILLIN SODIUM/SULBACTAM NA 3 GM in NORMAL SALINE 100 ML IV SCH (22:01)
[2019-06-14] MEDS: POTASSI CL 20 MEQ/D5-1/2NS 1L 1,000 ML IV PRN (22:01)
[2019-06-14] MEDS: FAMOTIDINE INJ/PF 20 MG/2 ML SDV IV SCH (22:01)
[2019-06-14 22:41] LABS: INTERNATIONAL RATION (INR) 0.98; PARTIAL THROMBOPLASTIN TIME 26.9 SEC (23.5-35.8); PROTHROMBIN TIME 12.9 SEC (11.4-15.4)
[2019-06-15] MEDS: AMPICILLIN SODIUM/SULBACTAM NA 3 GM in NORMAL SALINE 100 ML IV SCH ×4 (03:40→21:13)
[2019-06-15 05:47] LABS: ABSOLUTE EOSINOPHILS # (AUTO) 0.2 10^3/uL (0.0-0.6); ABSOLUTE LYMPHOCYTES (AUTO) 1.4 10^3/uL (0.5-4.7); ABSOLUTE MONOCYTES (AUTO) 0.6 10^3/uL (0.1-1.4); ABSOLUTE NEUT (AUTO) 3.6 10^3/uL (1.7-8.2); BASOPHILS % (AUTO) 0.3 % (0-2); EOSINOPHILS % (AUTO) 2.7 % (0-6); HEMATOCRIT 41.1 % (37.9-51.0); HEMOGLOBIN 14.4 g/dL (13.5-17.0); LYMPHOCYTES % (AUTO) 24.2 % (13-45); MEAN CORPUSCULAR HEMOGLOBIN 31.6 pg (27.0-33.4); MEAN CORPUSCULAR VOLUME 90 fl (80-97); MONOCYTES % (AUTO) 10.5 % (3-13); PLATELET COUNT 138 10^3/uL (150-450); RED BLOOD COUNT 4.55 10^6/uL (4.35-5.55); RED CELL DISTRIBUTION WIDTH 13.4 % (11.5-14.0); SEGMENTED NEUTROPHILS % (AUTO) 62.3 % (42-78); TOTAL CELLS COUNTED % (AUTO) 100 %; WHITE BLOOD COUNT 5.8 10^3/uL (4.0-10.5)
[2019-06-15 06:24] LABS: ALBUMIN 3.6 g/dL (3.5-5.0); ALKALINE PHOSPHATASE 122 U/L (38-126); ASPARTATE AMINO TRANSFERASE 181 U/L (17-59); BILIRUBIN,DIRECT 5.6 mg/dL (0.0-0.4); BILIRUBIN,TOTAL 6.9 mg/dL (0.2-1.3); TOTAL PROTEIN 6.1 g/dL (6.3-8.2)
[2019-06-15] MEDS ORDERED: BUPIVACAINE HCL 0.25 % INJ/PF (2.5 MG/1 ML) 30 ML VIAL ONE (07:34)
[2019-06-15] MEDS ORDERED: FENTANYL CITRATE INJ/PF 250 MCG/5 ML AMPULE ONE (08:39)
[2019-06-15] MEDS ORDERED: PROPOFOL INJ 200 MG/20 ML VIAL IV ONE (08:39)
[2019-06-15] MEDS ORDERED: SUGAMMADEX SODIUM 200 MG/2 ML SDV IV ONE (08:39)
[2019-06-15] MEDS ORDERED: ONDANSETRON HCL INJ/PF 4 MG/2 ML SDV ONE (08:39)
[2019-06-15] MEDS ORDERED: DEXAMETHASONE SOD PHOSPHATE INJ 4 MG/1 ML VIAL ONE (08:39)
[2019-06-15] MEDS ORDERED: MIDAZOLAM 2 MG/2 ML INJ ONE (08:46)
[2019-06-15] MEDS: PANTOPRAZOLE SODIUM 40 MG TABLET.DR PO SCH ×2 (09:26→17:28)
[2019-06-15] MEDS: FAMOTIDINE INJ/PF 20 MG/2 ML SDV IV SCH ×3 (09:26→21:23)
[2019-06-15] MEDS ORDERED: PROMETHAZINE HCL INJ 25 MG/1 ML VIAL IV PRN (09:34)
[2019-06-15] MEDS ORDERED: MORPHINE SULFATE 10 MG/ML INJ IV PRN (09:34)
[2019-06-15] MEDS ORDERED: FENTANYL CITRATE INJ/PF 100 MCG/2 ML AMPUL IV PRN ×2 (09:34)
[2019-06-15] MEDS ORDERED: MEPERIDINE HCL/PF INJ 25 MG/1 ML DISP.SYRIN IV PRN (09:34)
[2019-06-15] MEDS ORDERED: DIPHENHYDRAMINE HCL 50 MG/ML VIAL IV PRN (09:34)
[2019-06-15] MEDS ORDERED: SUCCINYLCHOLINE CHLORIDE INJ 200 MG/10 ML VIAL ONE (09:51)
--- NOTE | 2019-06-15 10:53 | PDOC PROGRESS REPORT ---
Subjective Progress Note for:: 06/15/19 Subjective:: This is a 38-year-old male with choledocholithiasis and cholecystitis. He is status post ERCP for choledocholithiasis. He denies CP, SOB. He does report minimal abdominal pain. Reason For Visit: CHOLEDOCHLITHIASIS Physical Exam Vital Signs: Temp Pulse Resp BP Pulse Ox 97.8 F 74 19 121/69 96 06/15/19 07:37 06/15/19 07:37 06/15/19 07:37 06/15/19 07:37 06/15/19 07:37 Intake & Output 06/14/19 06/15/19 06/16/19 06:59 06:59 06:59 Intake Total 4200 0 Balance 4200 0 Weight 114.1 kg General appearance: PRESENT: no acute distress, cooperative Eye exam: PRESENT: EOMI, PERRLA, scleral icterus Mouth exam: PRESENT: moist Neck exam: ABSENT: meningismus, tenderness, thyromegaly, tracheal deviation Cardiovascular exam: PRESENT: RRR GI/Abdominal exam: PRESENT: soft, tenderness - minimal RUQ. ABSENT: distended Rectal exam: PRESENT: deferred Extremities exam: ABSENT: clubbing Musculoskeletal exam: ABSENT: deformity Neurological exam: PRESENT: alert, awake, oriented to person, oriented to place, oriented to time, oriented to situation, CN II-XII grossly intact Psychiatric exam: ABSENT: agitated, anxious, depressed Focused psych exam: ABSENT: delusional Skin exam: PRESENT: jaundice. ABSENT: cyanosis, erythema Results Laboratory Results: 06/15/19 04:31 06/14/19 08:38 06/14/19 06/15/19 06/15/19 08:32 04:31 04:31 WBC 5.8 RBC 4.55 Hgb 14.4 Hct 41.1 MCV 90 MCH 31.6 MCHC 35.0 RDW 13.4 Plt Count 138 L Seg Neutrophils % 62.3 Total Bilirubin 6.9 H AST 181 H Alkaline Phosphatase 122 Total Protein 6.1 L Albumin 3.6 Lipase 173.0 Urine Color DARK YELLOW Urine Appearance TURBID Urine pH 5.0 Ur Specific [place] 1.019 Urine Protein NEGATIVE Urine Glucose (UA) NEGATIVE Urine Ketones NEGATIVE Urine Blood NEGATIVE Urine Nitrite NEGATIVE Ur Leukocyte Esterase NEGATIVE Urine WBC (Auto) 2 Urine RBC (Auto) 0 12/06/14/19 06/14/19 08:38 08:38 11:25 Creatine Kinase 122 CK-MB (CK-2) 1.62 Troponin I < 0.012 < 0.012 Impressions: Abdomen Ultrasound 06/14/19 10:02 IMPRESSION: 1. Cholelithiasis, positive Juarez's sign and probable trace amoun t of pericholecystic fluid. These findings are concerning for an acute diverticulitis. 2. Punctate echogenic foci within the nondependent portion of the gallbladder wall with comet tail artifact. These findings are suggestive of adenomyomatosis. 3. Increased echogenicity of the hepatic parenchyma relative to the renal cortex. The finding is typical in the setting of diffuse hepatocellular disease including hepatic steatosis. Chest X-Ray 06/14/19 14:31 IMPRESSION: No acute cardiopulmonary process. Catheter Placement 06/14/19 17:15 IMPRESSION: IMAGE(S) OBTAINED DURING PROCEDURE. Assessment & Plan - Diagnosis (1) Choledocholithiasis with acute cholecystitis Is this a current diagnosis for this admission?: Yes - Time Time Spent with patient: Less than 15 minutes - Plan Summary Plan Summary: This is a 38-year-old male with choledocholithiasis and cholecystitis. He is status post ERCP for choledocholithiasis. Plan for cholecystectomy today. Risks/benefits discussed, informed consent obtained, and all questions answered.
--- NOTE | 2019-06-15 10:58 | Operative Report ---
Nonrecallable Operative Report DATE OF SURGERY: 06/15/19 PREOPERATIVE DIAGNOSIS: Cholecystitis and choledocholithiasis POSTOPERATIVE DIAGNOSIS: Same as above OPERATION: Laparoscopic cholecystectomy SURGEON: LUKE ROMO ANESTHESIA: GA TISSUE REMOVED OR ALTERED: Gallbladder COMPLICATIONS: None apparent ESTIMATED BLOOD LOSS: Minimal PROCEDURE: Drains/implants: None. Procedure in detail: After informed consent was obtained, the patient was brought to the operating room and laid in the supine position. The area of the abdomen was prepped and draped in a normal sterile fashion. A supraumbilical incision was created with a 15 blade scalpel. Dissection was carried through the subcutaneous tissues using sharp and blunt dissection. The cicatrix was identified, grasped with a Nicole clamp, and retracted upwards. The linea alba fascia was incised sharply, the abdomen was entered sharply. The balloon trocar was inserted, and pneumoperitoneum was achieved. A subxiphoid 5 mm port was placed under direct laparoscopic visualization. 2 more 5 mm ports were placed in the right upper quadrant in similar fashion. Atraumatic graspers were placed through the 5 mm ports. The gallbladder was retracted cephalad and laterally. Dissection was begun in the triangle of Calot. The cystic duct and cystic artery were fully visualized and skeletonized, seeing the liver through the triangle. The cystic artery was then clipped and cut with laparoscopic instruments after the critical view of safety was obtained. The cystic duct was incredibly dilated and full of gallstones. Secondary to this, the gallbladder was elevated away from the liver. It was dissected off of the liver bed using electrocautery. Once the gallbladder was freed, it was amputated at the level of the infundibulum. The gallbladder was placed into an Endo Catch bag and pulled out through the umbilicus. Next, the cystic duct was milked. Multiple gallstones were impacted within the cystic duct. These were all milked out of the cystic duct and extracted. After all of the stones were milked out of the cystic duct, a PDS Endoloop was secured around the infundibulum/cystic duct junction. Once this was completed, the abdomen was copiously irrigated and suctioned, until the effluent was clear. The hilum was inspected. It was found to be free of any leakage of blood or bile. Once this was confirmed, the 5 mm trochars were removed under direct laparoscopic visualization. The supraumbilical trocar was removed, and pneumoperitoneum was relieved. The supraumbilical fascia was closed using 0 Vicryl suture in [id number] fashion. The overlying skin was closed using 4-0 Vicryl Rapide suture in subcuticular fashion. All sponge, instrument, needle counts were correct x2. Condition: Stable.
[2019-06-15] MEDS: MORPHINE SULFATE 10 MG/ML INJ IV PRN ×3 (11:47→20:38)
[2019-06-15] MEDS: POTASSI CL 20 MEQ/D5-1/2NS 1L 1,000 ML IV PRN (17:28)
[2019-06-15] MEDS ORDERED: HYDROCODONE/ACETAMINOPHEN 10-325 MG TABLET PO PRN (20:55)
[2019-06-16] MEDS: MORPHINE SULFATE 10 MG/ML INJ IV PRN (00:51)
[2019-06-16] MEDS: POTASSI CL 20 MEQ/D5-1/2NS 1L 1,000 ML IV PRN (00:52)
[2019-06-16] MEDS: AMPICILLIN SODIUM/SULBACTAM NA 3 GM in NORMAL SALINE 100 ML IV SCH (02:59)
--- NOTE | 2019-06-16 07:37 | PDOC DISCHARGE SUMMARY ---
General - Admit/Disc Date/PCP Admission Date/Primary Care Provider: 06/14/19 14:42 Discharge Date: 06/16/19 - Discharge Diagnosis Final Diagnosis: Choledocholithiasis and cholecystitis. - Assessment Summary: This is a 38-year-old male admitted to the hospital with jaundice and right upper quadrant pain. He was found to have biliary duct obstruction and thickening of the gallbladder wall. The patient was admitted to the hospital, and taken for ERCP. The patient underwent bile duct exploration with stone extraction. The following day, the patient was taken for laparoscopic cholecystectomy. Surgery went well. By 06/16/2019, the patient was ambulating, tolerating a diet, comfortable with oral pain medications, and was medically fit for discharge. - Additional Information Resuscitation Status: Full Code Discharge Diet: As Tolerated Discharge Activity: No Lifting Over 10 Pounds - X2 weeks, No Lifting/Push/Pulling Referrals: YVES SHABAZZ MD [ACTIVE STAFF] - (pt to f/u with hematology per on outpatient basis for hemachromatosis work up.) Home Medications: Omeprazole 40 mg PO BID 06/14/19 Additional Information: Discharge home. Diet as tolerated. Activity: No lifting greater than 10 pounds x 2 weeks. Follow-up with [place] [facility] in 10 to 14 days. [place] 10/325 mg p.o. every 6 hours PRN for pain. History of Present Illiness History of Present Illness: KYLEIGH CAN is a 38 year old male Physical Exam Vital Signs: Temp Pulse Resp BP Pulse Ox 98.6 F 64 17 153/88 H 99 06/16/19 00:21 06/16/19 00:21 06/16/19 00:21 06/16/19 00:21 06/16/19 00:21 Intake & Output 06/15/19 06/16/19 06/17/19 06:59 06:59 06:59 Intake Total 4200 6040 Output Total 2045 Balance 4200 3995 Weight 114.1 kg 114.1 kg Results Laboratory Results: WBC 5.8 10^3/uL (4.0-10.5) 06/15/19 04:31 RBC 4.55 10^6/uL (4.35-5.55) 06/15/19 04:31 Hgb 14.4 g/dL (13.5-17.0) 06/15/19 04:31 Hct 41.1 % (37.9-51.0) 06/15/19 04:31 MCV 90 fl (80-97) 06/15/19 04:31 MCH 31.6 pg (27.0-33.4) 06/15/19 04:31 MCHC 35.0 g/dL (32.0-36.0) 06/15/19 04:31 RDW 13.4 % (11.5-14.0) 06/15/19 04:31 Plt Count 138 10^3/uL (150-450) L 06/15/19 04:31 Lymph % (Auto) 24.2 % (13-45) 06/15/19 04:31 [place] % (Auto) 10.5 % (3-13) 06/15/19 04:31 Eos % (Auto) 2.7 % (0-6) 06/15/19 04:31 Baso % (Auto) 0.3 % (0-2) 06/15/19 04:31 Absolute Neuts (auto) 3.6 10^3/uL (1.7-8.2) 06/15/19 04:31 Absolute Lymphs (auto) 1.4 10^3/uL (0.5-4.7) 06/15/19 04:31 Absolute Monos (auto) 0.6 10^3/uL (0.1-1.4) 06/15/19 04:31 Absolute Eos (auto) 0.2 10^3/uL (0.0-0.6) 06/15/19 04:31 Absolute Basos (auto) 0.0 10^3/uL (0.0-0.2) 06/15/19 04:31 Seg Neutrophils % 62.3 % (42-78) 06/15/19 04:31 PT 12.9 SEC (11.4-15.4) 06/14/19 22:20 INR 0.98 06/14/19 22:20 APTT 26.9 SEC (23.5-35.8) 06/14/19 22:20 Sodium 141.7 mmol/L (137-145) 06/14/19 08:38 Potassium 4.0 mmol/L (3.6-5.0) 06/14/19 08:38 Chloride 102 mmol/L (98-107) 06/14/19 08:38 Carbon Dioxide 26 mmol/L (22-30) 06/14/19 08:38 Anion Gap 14 (5-19) 06/14/19 08:38 BUN 16 mg/dL (7-20) 06/14/19 08:38 Creatinine 0.97 mg/dL (0.52-1.25) 06/14/19 08:38 Est GFR ( Amer) > 60 (>60) 06/14/19 08:38 Est GFR (MDRD) Non-Af > 60 (>60) 06/14/19 08:38 Glucose 119 mg/dL (75-110) H 06/14/19 08:38 Calcium 9.9 mg/dL (8.4-10.2) 06/14/19 08:38 Total Bilirubin 6.9 mg/dL (0.2-1.3) H 06/15/19 04:31 Direct Bilirubin 5.6 mg/dL (0.0-0.4) H 06/15/19 04:31 Neonat Total Bilirubin Not Reportable 06/15/19 04:31 Neonat Direct Bilirubin Not Reportable 06/15/19 04:31 Neonat Indirect Bili Not Reportable 06/15/19 04:31 AST 181 U/L (17-59) H 06/15/19 04:31 ALT 553 U/L (<50) 06/15/19 04:31 Alkaline Phosphatase 122 U/L (38-126) 06/15/19 04:31 Creatine Kinase 122 U/L (55-170) 06/14/19 08:38 CK-MB (CK-2) 1.62 ng/mL (<4.55) 06/14/19 08:38 Troponin I < 0.012 ng/mL 06/14/19 11:25 Total Protein 6.1 g/dL (6.3-8.2) L 06/15/19 04:31 Albumin 3.6 g/dL (3.5-5.0) 06/15/19 04:31 Lipase 173.0 U/L (23-300) 06/15/19 04:31 Urine Color DARK YELLOW 06/14/19 08:32 Urine Appearance TURBID 06/14/19 08:32 Urine pH 5.0 (5.0-9.0) 06/14/19 08:32 Ur Specific [place] 1.019 06/14/19 08:32 Urine Protein NEGATIVE mg/dL (NEGATIVE) 06/14/19 08:32 Urine Glucose (UA) NEGATIVE mg/dL (NEGATIVE) 06/14/19 08:32 Urine Ketones NEGATIVE mg/dL (NEGATIVE) 06/14/19 08:32 Urine Blood NEGATIVE (NEGATIVE) 06/14/19 08:32 Urine Nitrite NEGATIVE (NEGATIVE) 06/14/19 08:32 Urine Bilirubin MODERATE (NEGATIVE) H 06/14/19 08:32 Urine Urobilinogen 4.0 mg/dL (<2.0) H 06/14/19 08:32 Ur Leukocyte Esterase NEGATIVE (NEGATIVE) 06/14/19 08:32 Urine WBC (Auto) 2 /HPF 06/14/19 08:32 Urine RBC (Auto) 0 /HPF 06/14/19 08:32 Squamous Epi Cells Auto <1 /HPF 06/14/19 08:32 Urine Mucus (Auto) RARE /LPF 06/14/19 08:32 Urine Ascorbic Acid NEGATIVE (NEGATIVE) 06/14/19 08:32 06/14/19 06/14/19 08:38 11:25 CK-MB (CK-2) 1.62 Troponin I < 0.012 < 0.012 Impressions: Abdomen Ultrasound 06/14/19 10:02 IMPRESSION: 1. Cholelithiasis, positive Juarez's sign and probable trace amou nt of pericholecystic fluid. These findings are concerning for an acute diverticulitis. 2. Punctate echogenic foci within the nondependent portion of the gallbladder wall with comet tail artifact. These findings are suggestive of adenomyomatosis. 3. Increased echogenicity of the hepatic parenchyma relative to the renal cortex. The finding is typical in the setting of diffuse hepatocellular disease including hepatic steatosis. Chest X-Ray 06/14/19 14:31 IMPRESSION: No acute cardiopulmonary process. Catheter Placement 06/14/19 17:15 IMPRESSION: IMAGE(S) OBTAINED DURING PROCEDURE.
[2019-06-16] MEDS ORDERED: IBUPROFEN 800 MG TABLET PO SCH (08:00)
[2019-06-16 08:45] VITALS: BP 130/85
== END 2019-06-16 09:30 | disposition home or self-care (01) ==
LOC: ER 07:59 → EH 14:42 → INTOOBSV 14:42 → 5 19:21
PROVIDERS: ADMIT Surgery; ATTEND Surgery
DX: K80.65 Calculus of gallbladder and bile duct with chronic cholecystitis with obstruction (principal); K76.0 Fatty (change of) liver, not elsewhere classified; R17 Unspecified jaundice; K21.9 Gastro-esophageal reflux disease without esophagitis; E66.9 Obesity, unspecified; Z68.34 Body mass index [BMI] 34.0-34.9, adult; Z87.891 Personal history of nicotine dependence
CPT/HCPCS: 93005; 99291; 99292; 96361; 96374; 96375; 43261; 36415 ×2; 87040; 82553; 82550; 83690 ×2; 85025 ×2; 85610; 85730; 80076; 80053; 81001; 84484; 88304 ×2; 71045; 74328; 76705; 93010; 00732; 00790; 47562; G0378 ×4; J2250 ×2; J1100; J3010 ×2; J0295 ×3; J2270 ×2; J3480 ×3; J0330 ×2; J2405 ×2; J7050 ×3; J7030; J7120; J2704 ×2; S0028; J2543; J3490 ×2; 732; 790

== ENCOUNTER 2019-10-07 14:36 | Emergency (ER) | payer BC, OTHER ==
[2019-10-07] MEDS ORDERED: DIAZEPAM 5 MG TABLET PO ONE (14:53)
[2019-10-07] MEDS ORDERED: KETOROLAC TROMETHAMINE 60 MG/2 ML SDV IM ONE (14:53)
[2019-10-07] MEDS ORDERED: OXYCODONE-ACETAMINOPHEN 5-325 MG TABLET PO ONE (14:54)
--- NOTE | 2019-10-07 14:55 | ER Document Report ---
ED Medical Screen (RME) - General Chief Complaint: Back Pain Stated Complaint: BACK PAIN Time Seen by Provider: 10/07/19 14:47 Notes: HPI: 39-year-old male presenting to the emergency department complaining of severe lower back pain today. Patient states that over the last 2 weeks he has had intermittent episodes of low back pain. States that he has had 2 prior back surgeries from a herniated disc. Last surgery was in 2013 and was done in [place] by the orthopedics physicians. Patient denies any acute trauma. Denies flank pain hematuria testicular pain. Denies nausea vomiting or fever states that today when he tried to get up he was unable to walk because of the significant discomfort he was having. States he has difficulty straightening up. Denies weakness numbness or tingling in the lower extremities. I have greeted and performed a rapid initial assessment of this patient. A comprehensive ED assessment and evaluation of the patient, analysis of test results and completion of the medical decision making process will be conducted by additional ED providers PHYSICAL EXAMINATION: No reproducible pain across the lower back on palpation. No saddle anesthesia on exam. Patient is mildly uncomfortable at this time I have greeted and performed a rapid initial assessment of this patient. A comprehensive ED assessment and evaluation of the patient, analysis of test results and completion of medical decision making process will be conducted by an additional ED providers. TRAVEL OUTSIDE OF THE [place] IN LAST 30 DAYS: No - Related Data Allergies/Adverse Reactions: No Known Drug Allergies Allergy (Verified 10/07/19 14:47) Past Medical History Renal/ Medical History: Denies: Hx Peritoneal Dialysis GI Medical History: Reports: Hx Gastroesophageal Reflux Disease Past Surgical History: Reports: Hx Orthopedic Surgery - Back surgery Physical Exam - Vital signs Vitals: Temp Pulse Resp BP Pulse Ox 98.8 F 83 16 138/88 H 98 10/07/19 14:40 10/07/19 14:40 10/07/19 14:40 10/07/19 14:40 10/07/19 14:40 Course - Vital Signs Vital signs: Temp Pulse Resp BP Pulse Ox 98.8 F 83 16 138/88 H 98 10/07/19 14:40 10/07/19 14:40 10/07/19 14:40 10/07/19 14:40 10/07/19 14:40
[2019-10-07] MEDS ORDERED: NORMAL SALINE 1000 ML 1,000 ML IV ONE (15:56)
--- NOTE | 2019-10-07 16:35 | RADIOLOGY REPORT (SQ) ---
EXAM DESCRIPTION: CT LUMBAR SPINE WITHOUT IMAGES COMPLETED DATE/TIME: 10/07/2019 4:08 pm REASON FOR STUDY: left side sciatica COMPARISON: None. TECHNIQUE: Axial images acquired through the lumbar spine without intravenous contrast. Images revi ewed with lung, soft tissue and bone windows. Reconstructed coronal and sagittal MPR images reviewed . All images stored on PACS. All CT scanners at this facility use dose modulation, iterative reconstruction, and/or weight based d osing when appropriate to reduce radiation dose to as low as reasonably achievable (ALARA). [facility]: Dose Right [facility]: CareDose [facility]: Dose Right [facility]: Teradose 4D [facility]: [employer] LIMITATIONS: None. FINDINGS: SEGMENTATION: There is partial lumbarization of the L5 vertebral body. ALIGNMENT: Grade 1 retrolisthesis of L4 relative to L5. VERTEBRAL BODIES: The lumbar vertebral body heights are preserved. There is no fracture. DISCS: The L4-L5 intervertebral disc space is narrowed and there is a posterior disc osteophyte compl ex eccentric to the left that extents into the left lateral recess and likely compresses the intrathe ezequiel left L5 nerve root. PEDICLES, TRANSVERSE PROCESSES: No fracture or malalignment. FACETS, POSTERIOR ELEMENTS: No fracture or malalignment. HARDWARE: None in the spine. VISUALIZED RIBS: No fractures. SOFT TISSUES: No pre or paravertebral hematoma. OTHER: No other finding. IMPRESSION: Posterior disc osteophyte complex eccentric to the left at L4-L5 that extends into the l eft lateral recess and likely compresses the intrathecal left L5 nerve root. TECHNICAL DOCUMENTATION: JOB ID: [id number] Quality ID # [id number]: Final reports with documentation of one or more dose reduction techniques (e.g., Au tomated exposure control, adjustment of the mA and/or kV according to patient size, use of iterative reconstruction technique) 2010 [employer]- All Rights Reserved Reading location - IP/workstation name: [email or web address]
[2019-10-07 16:49] LABS: ABSOLUTE EOSINOPHILS # (AUTO) 0.1 10^3/uL (0.0-0.6); ABSOLUTE LYMPHOCYTES (AUTO) 1.8 10^3/uL (0.5-4.7); ABSOLUTE MONOCYTES (AUTO) 0.7 10^3/uL (0.1-1.4); ABSOLUTE NEUT (AUTO) 6.2 10^3/uL (1.7-8.2); BASOPHILS % (AUTO) 0.3 % (0-2); EOSINOPHILS % (AUTO) 1.1 % (0-6); HEMATOCRIT 45.5 % (37.9-51.0); HEMOGLOBIN 16.1 g/dL (13.5-17.0); LYMPHOCYTES % (AUTO) 20.9 % (13-45); MEAN CORPUSCULAR HEMOGLOBIN 31.4 pg (27.0-33.4); MEAN CORPUSCULAR HGB CONC 35.3 g/dL (32.0-36.0); MEAN CORPUSCULAR VOLUME 89 fl (80-97); MONOCYTES % (AUTO) 7.4 % (3-13); PLATELET COUNT 146 10^3/uL (150-450); RED BLOOD COUNT 5.13 10^6/uL (4.35-5.55); RED CELL DISTRIBUTION WIDTH 13.8 % (11.5-14.0); SEGMENTED NEUTROPHILS % (AUTO) 70.3 % (42-78); TOTAL CELLS COUNTED % (AUTO) 100 %; WHITE BLOOD COUNT 8.8 10^3/uL (4.0-10.5)
[2019-10-07 16:58] LABS: APPEARANCE,URINE CLEAR; BILIRUBIN,URINE NEGATIVE (NEGATIVE); COLOR,URINE YELLOW; GLUCOSE, URINE NEGATIVE (NEGATIVE); KETONES,URINE NEGATIVE (NEGATIVE); LEUKOCYTE ESTERASE,URINE NEGATIVE (NEGATIVE); NITRITE,URINE NEGATIVE (NEGATIVE); PROTEIN,URINE NEGATIVE (NEGATIVE); URINE SPECIFIC GRAVITY 1.025; UROBILINOGEN,URINE NEGATIVE mg/dL (<2.0)
[2019-10-07 17:08] LABS: ALBUMIN 4.3 g/dL (3.5-5.0); ALKALINE PHOSPHATASE 50 U/L (38-126); ANION GAP 6 (5-19); ASPARTATE AMINO TRANSFERASE 29 U/L (17-59); BILIRUBIN,TOTAL 0.7 mg/dL (0.2-1.3); BLOOD UREA NITROGEN 22 mg/dL (7-20); CALCIUM 9.3 mg/dL (8.4-10.2); CARBON DIOXIDE 28 mmol/L (22-30); CHLORIDE 104 mmol/L (98-107); GLUCOSE 100 mg/dL (75-110); POTASSIUM 4.5 mmol/L (3.6-5.0); TOTAL PROTEIN 7.1 g/dL (6.3-8.2)
[2019-10-07 17:12] LABS: URINE AMPHETAMINES SCREEN NEGATIVE; URINE BARBITURATES SCREEN NEGATIVE; URINE COCAINE SCREEN NEGATIVE; URINE MARIJUANA (THC) SCREEN NEGATIVE; URINE METHADONE SCREEN NEGATIVE; URINE PHENCYCLIDINE SCREEN NEGATIVE
[2019-10-07 17:15] LABS: URINE BENZODIAZEPINES SCREEN UNCONFIRMED POSITIVE
[2019-10-07] MEDS ORDERED: DEXAMETHASONE SOD PHOS INJ 10 MG/1 ML VIAL IV ONE (18:25)
--- NOTE | 2019-10-07 18:35 | ER Document Report ---
Entered by AMBER GARCÍA SCRIBE 10/07/19 1524 Acting as scribe for:CAITLYN COLON MD ED General - General Chief Complaint: Back Pain Stated Complaint: BACK PAIN Time Seen by Provider: 10/07/19 14:47 Information source: Patient Notes: This 39-year-old male presents to the emergency department with a chief complaint of lower back pain that worsened this morning. Patient describes that pain started 2 weeks ago as dull and he woke up this morning with severe pain that radiates down his left leg. Patient says that it feels like "everything is crushing down". Patient states that pain is worse with movement and standing. Patient says that pain is exacerbated with laying. Patient said that he was unable to get out of bed this morning due to pain. Patient mentions that he has had back pain before and two past orthopedic back surgeries but this current pain is worse then he has felt in the past. Patient reports constipation today with chills off and on. Patient denies abdominal pain, nausea, fever, vomiting, incontinence and injury. Patient said that he has had two back surgeries. The first was in 2007 in [place] and the second back surgery was in 2013 in [facility]. Patient states that he does not have a local orthopedic physician. TRAVEL OUTSIDE OF THE [place] IN LAST 30 DAYS: No - Related Data Allergies/Adverse Reactions: No Known Drug Allergies Allergy (Verified 10/07/19 14:47) Past Medical History - General Information source: Patient - Social History Smoking Status: Never Smoker Cigarette use (# per day): No Chew tobacco use (# tins/day): No Frequency of alcohol use: Rare Drug Abuse: None Family History: Reviewed & Not Pertinent Patient has suicidal ideation: No Patient has homicidal ideation: No GI Medical History: Reports: Hx Gastroesophageal Reflux Disease Past Surgical History: Reports: Hx Cholecystectomy, Hx Orthopedic Surgery - Back surgery Review of Systems - Review of Systems Constitutional: See HPI, Chills. denies: Fever EENT: No symptoms reported Cardiovascular: No symptoms reported Respiratory: No symptoms reported Gastrointestinal: See HPI, Constipation. denies: Nausea, Vomiting Genitourinary: No symptoms reported Male Genitourinary: No symptoms reported Musculoskeletal: See HPI, Back pain Skin: No symptoms reported Hematologic/Lymphatic: No symptoms reported Neurological/Psychological: No symptoms reported -: Yes All other systems reviewed and negative Physical Exam - Vital signs Vitals: Temp Pulse Resp BP Pulse Ox 98.8 F 83 16 138/88 H 98 10/07/19 14:40 10/07/19 14:40 10/07/19 14:40 10/07/19 14:40 10/07/19 14:40 - Notes Notes: Physical Exam: General: Alert, appears well. HEENT: Normocephalic. Atraumatic. PERRL. Extraocular movements intact. Oropharynx clear. Neck: Supple. Non-tender. Respiratory: No respiratory distress. Clear and equal breath sounds bilaterally. Cardiovascular: Regular rate and rhythm. Abdominal: Normal Inspection. Non-tender. No distension. Normal Bowel Sounds. Back: Lower left back tenderness to palpation. Extremities: Moves all four extremities. Upper extremities: Normal inspection. Normal ROM. Lower extremities: Normal inspection. No edema. Normal ROM. Neurological: Normal cognition. AAOx4. Normal speech. Psychological: Normal affect. Normal Mood. Skin: Warm. Dry. Normal color. Course - Re-evaluation Re-evalutation: 10/07/19 18:26 Patient resting comfortable in bed. States the medication he has received durin g his ED visit has helped his pain in his left leg. - Vital Signs Vital signs: Temp Pulse Resp BP Pulse Ox 98.8 F 83 16 138/88 H 98 10/07/19 14:40 10/07/19 14:40 10/07/19 14:40 10/07/19 14:40 10/07/19 14:40 - Laboratory Result Diagrams: 10/07/19 16:28 10/07/19 16:28 Laboratory results interpreted by me: 10/07/19 10/07/19 16:28 16:28 Plt Count 146 L BUN 22 H Laboratory results within normal limits BUN of 22 slightly elevated. And a platelet count of 146 slightly low. - Diagnostic Test Radiology reviewed: Image reviewed, Reports reviewed Radiology results interpreted by me: 10/07/19 18:27 CT scan of lumbar spine shows a osteophyte complex that is pushing on the L5 nerve root on the left side. This is consistent with patient's symptoms of sciatic pain going down the left leg. Discharge - Discharge Clinical Impression: Degenerative joint disease (DJD) of lumbar spine, Sciatica of left side due to displacement of lumbar intervertebral disc Condition: Good Disposition: HOME, SELF-CARE Instructions: Oral Narcotic Medication ([facility]) Additional Instructions: Low Back Pain Three out of every four people will have an episode of disabling back pain during their lifetime. Most commonly the pain is due to straining of the muscles and ligaments in the low back. Usual treatment includes: (1) Rest on a firm surface. Avoid lying on your stomach. (2) Ice pack the painful area. After a few days, gentle heat may be used intermittently to relax the area, or ice packs can be continued. (3) Medication may be needed -- muscle relaxers and antiinflammatory medicines are commonly used. (4) As the back improves, exercises are prescribed to strengthen the back and abdominal muscles. Your doctor will advise you on the proper care for your back at each stage in your recovery. You may be better in a few days -- or healing may take several weeks. If new symptoms of a "herniated disc" (radiation of pain, numbness, or tingling down the back of the leg or weakness in the leg) occur, you should be re-examined. Further testing may be necessary.Sciatica Your symptoms suggest "sciatica." The pain of sciatica typically radiates down the leg. Numbness in the foot or calf may also occur. Sciatica is caused by irritation of the sciatic nerve or its branches. The irritation can be due to a herniated disk in the spine, swelling and inflammation in the muscles surrounding the sciatic nerve, or direct injury of the nerve itself. Most cases of sciatica will resolve with medical treatment. Bed rest is usually recommended initially. Surgery is only necessary when the condition will not improve with rest and antiinflammatory medication. Muscle relaxers are often given if muscle soreness is present. A CAT scan of the back may be performed if a herniated disk is suspected. Re-examination is necessary if you develop increasing numbness, localized weakness in the foot or ankle, or if the pain does not respond to rest. Prescriptions: Hydrocodone/Acetaminophen [Hydrocodone-Acetamin 5-300 mg] 1 each PO QID PRN 2 Days #10 tablet PRN Reason: Methylprednisolone [Medrol Dosepack (4 mg/Tab) 21 Tab/Dosepak] 4 mg PO ASDIR 6 Days #21 tab.ds.pk Ibuprofen [Motrin 800 mg Tablet] 800 mg PO Q8H PRN #30 tab PRN Reason: pain I personally performed the services described in the documentation, reviewed and edited the documentation which was dictated to the scribe in my presence, and it accurately records my words and actions.
[2019-10-07 19:03] VITALS: BP 118/76
== END 2019-10-07 19:05 | disposition home or self-care (01) ==
LOC: ER 14:36
DX: M47.816 Spondylosis without myelopathy or radiculopathy, lumbar region (principal); M51.17 Intervertebral disc disorders with radiculopathy, lumbosacral region; M54.5 Low back pain; K59.00 Constipation, unspecified; M54.9 Dorsalgia, unspecified; M79.605 Pain in left leg
CPT/HCPCS: 99284; 96372; 96361; 96374; 36415; 85025; 80053; 81001; 80307; 72131; J1885; J7030; J1100